=== PATIENT | male | born 1945 | race African-American/Black ===

== ENCOUNTER 2016-12-19 08:09 | Emergency (ER) | payer OTHER ==
--- NOTE | 2016-12-19 08:21 | ERNOTE ---
Medical Problem HPI - General Time Seen by Provider: 12/19/16 08:19 Source: patient Exam Limitations: clinical condition - Immun/Allergies/Home Medications Allergies/Adverse Reactions: Allergies STAN Inhibitors Allergy (Verified 12/19/16 08:21) Tricyclic Compounds Allergy (Verified 12/19/16 08:21) Home Medications: HOME MEDICATIONS Aspirin 325 mg PO DAILY 12/19/16 [Last Taken Unknown] Calcium Carbonate/Vitamin D3 [Calcium 500 + Vit D 200 Tablet] 1 each PO DAILY [Last Taken Unknown] DULoxetine HCL [Cymbalta] 30 mg PO DAILY 12/19/16 [Last Taken Unknown] Docusate Sodium 100 mg PO BID 12/19/16 [Last Taken Unknown] Doxercalciferol [Hectorol] 2.5 mcg PO DAILY 12/19/16 [Last Taken Unknown] Furosemide [Lasix] 80 mg PO DAILY 12/19/16 [Last Taken Unknown] Gabapentin [Neurontin] 1,200 mg PO TID 12/19/16 [Last Taken Unknown] Insulin Detemir [Levemir] 10 units SC QAM 12/19/16 [Last Taken Unknown] Insulin Detemir [Levemir] 50 units SC HS 12/19/16 [Last Taken Unknown] Losartan Potassium [Cozaar] 100 mg PO DAILY 12/19/16 [Last Taken Unknown] Morphine Sulfate [Morphine Sulfate ER] 15 mg PO Q6H PRN 12/19/16 [Last Taken Unknown] Morphine Sulfate [Morphine Sulfate ER] 30 mg PO BID 12/19/16 [Last Taken Unknown ] Naproxen [Naprosyn] 500 mg PO BID 12/19/16 [Last Taken Unknown] Ondansetron HCl [Zofran] 8 mg PO Q8H 12/19/16 [Last Taken Unknown] Sennosides [Senna Lax] 8.6 mg PO BID 12/19/16 [Last Taken Unknown] Simvastatin [Zocor] 20 mg PO HS 12/19/16 [Last Taken Unknown] - History of Present History Narrative: Patient is brought in by half-way staff for being less responsive today. 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 There is no other history available to this examiner. Review of Systems - Narrative Narrative: Review of systems in this patient is impossible because the patient is sleeping he is unarousable he has a good airway but he is not communicating at this time. Physical Exam - Physical Exam General Appearance: Present: other - patient is obese and he is sleeping but he is arousable ED Progress - Results and Orders Patient's Lab Results:: I have reviewed the patient's lab results. - Vital Signs Patient's Vital Signs:: I have reviewed the patient's vital signs. - X-Ray X-Ray #1 X-Ray: chest - CT/Ultrasound CT/Ultrasound Narrative: Ct of head was ordered and read by the radiologist as no intracranial bleeding Plan - Plan Plan: Initially the patient's blood glucose in the ambulance was 49 after an amp of D50 blood glucose increased to 114. In our emergency room first Blood pressure was 125/109 in our emergency room shortly thereafter after the patient came back from CT scanner the recent blood pressure dropped to 85/33 at this time the decision was made to add a second line and bolused the patient with another liter of fluids. Levophed at 0.5 mics per kilogram was initiated as a pressor drip. I am being told at this facility that half-way inmate's are not admitted to this facility and transferred to [facility] at this time the [facility] was consulted in regards to accepting this patient. This patient's hemoglobin was 7.6 with a hematocrit of 23.6. After contacting the [facility] I discussed this case with Dr. Bello who accepted the patient to the emergency room. Dr. Bello requested that we place a central line however in this facility since the central line is to be done by our surgeon and that would significantly delay the transfer and definitive care of this patient at the [facility] a central line will not be placed. Patient is ready and stabilized to be transferred out via air transport to [facility] at this time. Additionally a call from [facility] called to inform us that this patient is NOT on hospice and is a full code. This is contrary to the report I received from Dominga, the patient's nurse in the half-way, with whom I spoke earlier about this patient. Departure Clinical Impression: Altered mental status, unspecified Qualifiers: Altered mental status type: unspecified Qualified Code(s): R41.82 - Altered mental status, unspecified Anemia Qualifiers: Anemia type: iron deficiency Iron deficiency anemia type: unspecified iron deficiency Qualified Code(s): D50.9 - Iron deficiency anemia, unspecified - Departure Disposition: [facility] Condition: Serious
[2016-12-19 09:03] LABS: Mean Cell Volume 86.8 fl (78-100); Mean Corpuscular Hemoglobin 27.9 pg (27-31); Mean Corpuscular Hgb Conc 32.2 g/dl (32-36); Mean Platelet Volume 9.6 fl (6.0-9.5); Neutrophil # 1.3 K/mm3 (1.3-6.0); Neutrophil % 54.7 % (42-75.0); Platelet Count 118 K/mm3 (150-450); Red Blood Count 2.72 M/mm3 (4.7-6.0); Red Cell Distribution Width 20.9 % (11.5-14.0); White Blood Count 2.4 K/mm3 (4.0-10.5)
[2016-12-19 09:06] LABS: Hematocrit 23.6 % (42.0-52.0); Hemoglobin 7.6 gm/dL (13.5-18.0)
[2016-12-19 09:19] LABS: Hemoglobin A1C 7.4 % (4.00-6.0)
[2016-12-19] MEDS ORDERED: NORMAL SALINE 1,000 ML IV ONE ×2 (09:23→09:32)
[2016-12-19 09:26] LABS: Albumin * 2.6 gm/dl (3.4-5.0); Anion Gap 14.3 mmol/L (6.8-13.8); BUN/Creatinine Ratio 14.1 (9.0-21.6); Bilirubin, Total 0.6 mg/dL (0.0-1.1); Calcium * 7.2 mg/dL (7.9-10.9); Carbon Dioxide 24.8 mmol/L (24-32.6); Potassium 4.1 mmol/L (3.4-4.6); Total Protein 6.4 gm/dL (6.2-8.2)
[2016-12-19] MEDS ORDERED: NOREPINEPHRINE BITARTRATE 4 MG in DEXTROSE 5 % IN WATER 496 ML IV PRN ×2 (09:31)
[2016-12-19 09:58] LABS: Urine Bilirubin Negative (NEGATIVE); Urine Blood Negative /ul (NEGATIVE); Urine Ketone 5 mg/dL (NEGATIVE); Urine Nitrite Negative (NEGATIVE); Urine Protein 15 mg/dL (NEGATIVE); Urine Urobilinogen Normal (NORMAL); Urine pH 5.5 pH (5.0-7.0)
[2016-12-19 10:14] VITALS: BP 89/56
[2016-12-19 10:17] LABS: Urine Appearance Clear; Urine Bacteria 1+; Urine Color Dark Yellow; Urine RBC None Seen /hpf (0-5); Urine WBC 0-5 /hpf (0-5)
== END 2016-12-19 10:43 | disposition short-term general hospital (02) ==
LOC: ER 08:09
DX: R41.82 Altered mental status, unspecified (principal); D50.9 Iron deficiency anemia, unspecified

== ENCOUNTER 2016-12-30 10:06 | Emergency (ER) | payer OTHER ==
[2016-12-30] MEDS ORDERED: DEXTROSE 50%-WATER 50 ML SYRG ONE (10:13)
[2016-12-30] MEDS ORDERED: DEXTROSE 50%-WATER 50 ML SYRG IV ONE (10:17)
--- NOTE | 2016-12-30 10:38 | ERNOTE ---
Medical Problem HPI - Narrative Date of Service: 12/30/16 - General Chief Complaint: General Assessment Time Seen by Provider: 12/30/16 10:17 Source: RN/MD, EMS, RN notes reviewed, old records, other - Residential guards Exam Limitations: clinical condition - Immun/Allergies/Home Medications Immunizations: IMMUNIZATION HX Immunizations Up to Date unknown History of Influenza Vaccine More Information Required Hx Pneumococcal Vaccination More Information Required Allergies/Adverse Reactions: Allergies STAN Inhibitors Allergy (Verified 12/30/16 10:20) Tricyclic Compounds Allergy (Verified 12/30/16 10:20) Home Medications: HOME MEDICATIONS Aspirin 325 mg PO DAILY 12/19/16 [Last Taken Unknown] Calcium Carbonate/Vitamin D3 [Calcium 500 + Vit D 200 Tablet] 1 each PO DAILY [Last Taken Unknown] DULoxetine HCL [Cymbalta] 30 mg PO DAILY 12/19/16 [Last Taken Unknown] Docusate Sodium 100 mg PO BID 12/19/16 [Last Taken Unknown] Doxercalciferol [Hectorol] 2.5 mcg PO DAILY 12/19/16 [Last Taken Unknown] Furosemide [Lasix] 80 mg PO DAILY 12/19/16 [Last Taken Unknown] Gabapentin [Neurontin] 1,200 mg PO TID 12/19/16 [Last Taken Unknown] Insulin Detemir [Levemir] 10 units SC QAM 12/19/16 [Last Taken Unknown] Insulin Detemir [Levemir] 50 units SC HS 12/19/16 [Last Taken Unknown] Losartan Potassium [Cozaar] 100 mg PO DAILY 12/19/16 [Last Taken Unknown] Morphine Sulfate [Morphine Sulfate ER] 15 mg PO Q6H PRN 12/19/16 [Last Taken Unknown] Morphine Sulfate [Morphine Sulfate ER] 30 mg PO BID 12/19/16 [Last Taken Unknown ] Naproxen [Naprosyn] 500 mg PO BID 12/19/16 [Last Taken Unknown] Ondansetron HCl [Zofran] 8 mg PO Q8H 12/19/16 [Last Taken Unknown] Sennosides [Senna Lax] 8.6 mg PO BID 12/19/16 [Last Taken Unknown] Simvastatin [Zocor] 20 mg PO HS 12/19/16 [Last Taken Unknown] - History of Present History Narrative: Mr. Tiwari is a 71-year-old male brought to the emergency department by ambulance from the [facility] for altered mental status and low blood pressure. She was recently brought here in essentially the same condition and was transferred by air to the [facility] on a Levophed drip at that time. He has prostate cancer with bone metastasis. He was anemic at that time with a hemoglobin of 7.6. He was recently returned to the [facility] from the [facility] on Augmentin for a urinary tract infection. According to the nurse on duty in his unit, he had been doing well and had returned to his baseline state until last evening when he began vomiting. This morning, he had ended up on the floor twice and reported that his legs were giving out. His mentation continued to decline and she has been in and out of consciousness. He is diabetic and his blood sugar was checked. A reading of 66 was obtained. His blood pressure was unable to be determined. On arrival his blood pressure is 78 over palp and his blood glucose is 28. An amp of D50 has been given. The patient is responsive to voice briefly, but only mumbles responses. He is a full code. [facility] reports that this has been discussed with him recently after his return from the [facility] and he stated that he continued to wish to be resuscitated. This morning however, he did assert that he wanted to be a DNR, but the nursing staff did not feel that this was an appropriate time to change his CODE STATUS as he had been confused and in and out of consciousness. Date (Duration): 12/30/16 Timing: getting worse Review of Systems - Narrative Narrative: Review of systems is unable to be obtained at this time due to the patient's altered level of consciousness - Patient's Past Medical History Patient History - Medical: Cataracts, Diabetes Type 2, Obesity Patient History - Cardiac/Respiratory: Hyperlipidemia Patient History - Cancer: Prostate Patient History - Other: None - Social History Living Situations: home Abuse History: No History of abuse Psych History: Hx of Depression Alcohol Use: none Drug Use: none - Immunizations Immunizations Up to Date: - unknown Hx Pneumococcal Vaccination: More Information Required to Determine History of Influenza Vaccine: More Information Required to Determine Physical Exam - Physical Exam General Appearance: Present: lethargic, obese Head Exam: Present: normal inspection, no evidence of injury Eye Exam: Normal inspection: bilateral, PERRL: bilateral Neck: Present: normal inspection, supple Respiratory: Present: no respiratory distress, no accessory muscle use, lungs clear, decreased breath sounds - due to large body habitus Cardiovascular/Chest: Present: regular rate, rhythm, no murmur. Absent: normal peripheral pulses Peripheral Pulses: N=norm/S=strong/W=weak/B=bound/A=absent: Dorsalis-pedis (R): Weak, Dorsalis-pedis (L): Weak Gastrointestinal/Abdominal: Present: nondistended, soft. Absent: guarding, mass Extremity Exam: Present: normal except -, pedal edema - 3+ bilaterally Neurological Exam: Present: other - Lethargic, responsive to noxious stimuli, frequent jerking/shaking movements, occasional mumbling. Absent: alert, oriented, normal mood/affect, no motor/sensory deficits Skin Exam: Present: normal color, warm/dry ED Progress - Results and Orders Patient's Lab Results:: I have reviewed the patient's lab results. - Vital Signs Patient's Vital Signs:: I have reviewed the patient's vital signs. Vital Signs: Vital Signs 12/30/16 10:09 Temperature 35.6 C L Pulse Rate 84 Respiratory 13 Rate Blood Pressure 133/106 - Progress/Reassessment Chief Complaint: General Assessment Progress:: Unchanged Progress Note-Subjective: 12/30/16 12:05 Blood pressure remains low after first liter of NS at 80/40. Levophed drip ordered. HR in 90's with SpO2 of 96 to 100% on room air. Remains somnolent with occasional mumbling. 12/30/16 13:29 Etiology of altered mental status and hypotension remains unclear at this point. [facility] contacted for transfer d/t the contractual arrangement for inmates to receive their care there. Transfer accepted by Dr. Aden, ER triage. Narcan 0.1mg given IVP per his recommendation without any change in condition. Dante Law WET WASH ASSEMBLER was here to obtain additional IV access, as the patient only has 1 peripheral line and numerous attempts for additional sites have been unsuccessful. He was also unable to obtain access. Discussed a central line, this would have to be done in the OR. Delaying transport in order to do this does not seem beneficial. The patient remains on a Levophed drip and continues to receive his NS bolus. Rocephin 2 Gm IVPB will also be given. Blood pressure continues to be in the 70's and 80's over palp. Patient remains lethargic but responsive to noxious stimuli. Departure Clinical Impression: Prostate cancer metastatic to bone Altered mental status, unspecified Qualifiers: Altered mental status type: unspecified Qualified Code(s): R41.82 - Altered mental status, unspecified Hypotension Qualifiers: Hypotension type: unspecified hypotension type Qualified Code(s): I95.9 - Hypotension, unspecified - Departure Disposition: [facility] Condition: Poor
[2016-12-30] MEDS: NORMAL SALINE 1,000 ML IV SCH ×4 (10:41→13:16)
[2016-12-30 10:50] LABS: Hematocrit 25.9 % (42.0-52.0); Hemoglobin 8.2 gm/dL (13.5-18.0); Mean Cell Volume 87.2 fl (78-100); Mean Corpuscular Hemoglobin 27.6 pg (27-31); Mean Corpuscular Hgb Conc 31.7 g/dl (32-36); NRBC# 0.1 k/mm3 (0-1); Neutrophil # 5.3 K/mm3 (1.3-6.0); Neutrophil % 73.5 % (42-75.0); Platelet Count 132 K/mm3 (150-450); Red Blood Count 2.97 M/mm3 (4.7-6.0); Red Cell Distribution Width 21.7 % (11.5-14.0); White Blood Count 7.2 K/mm3 (4.0-10.5)
[2016-12-30 10:52] LABS: Urine Bilirubin 1 mg/dl (NEGATIVE); Urine Blood Negative /ul (NEGATIVE); Urine Ketone 5 mg/dL (NEGATIVE); Urine Nitrite Negative (NEGATIVE); Urine Protein 15 mg/dL (NEGATIVE); Urine Specific Gravity >=1.030 SP.GR. (1.005-1.030); Urine Urobilinogen Normal (NORMAL); Urine pH 5.5 pH (5.0-7.0)
[2016-12-30 11:04] LABS: Albumin * 2.6 gm/dl (3.4-5.0); Anion Gap 15.8 mmol/L (6.8-13.8); BUN/Creatinine Ratio 12.3 (9.0-21.6); Bilirubin, Total 0.6 mg/dL (0.0-1.1); Ca. Corrected For Albumin 8.3 mg/dL (8.4-10.2); Calcium * 7.5 mg/dL (7.9-10.9); Carbon Dioxide 25.2 mmol/L (24-32.6); Total Protein 6.7 gm/dL (6.2-8.2)
[2016-12-30 11:05] LABS: Urine Amorphous Sediment Moderate - 2+ (NONE-FEW); Urine Appearance Cloudy; Urine Bacteria None Seen; Urine Color Yellow; Urine RBC 0-5 /hpf (0-5); Urine WBC None Seen /hpf (0-5)
[2016-12-30] MEDS ORDERED: NOREPINEPHRINE BITARTRATE 4 MG in DEXTROSE 5 % IN WATER 496 ML IV PRN ×2 (12:04)
[2016-12-30] MEDS ORDERED: NALOXONE HCL 1 MG/1 ML SYRG IV ONE (12:53)
[2016-12-30] MEDS ORDERED: NALOXONE HCL 1 MG/1 ML SYRG ONE (13:06)
--- NOTE | 2016-12-30 13:37 | OR ---
Anesthesia Procedure Note - Anesthesia Procedure Note Date of Service: 12/30/16 Narrative: Vital Signs - Last Taken Temp 35.9 C L 12/30/16 12:25 Pulse 89 12/30/16 12:25 Resp 15 12/30/16 12:25 BP 66/38 12/30/16 12:25 Pulse Ox 90 12/30/16 12:25 O2 Oxygen Delivery Method Nasal Cannula ANESTHESIA PROCEDURE NOTE Date of Procedure: 12/30/2016 Time of procedure: 12:30. Performed by: Dante Law CRNA, RUTH, MSN Preprocedure diagnosis: Decreased level of consciousness, lack of IV access. Post procedure diagnosis: Same. Procedure: Venipuncture for IV access. Indications: Decreased level of consciousness, lack of IV access. Findings: Mr. Alston has was seen in and was not responding to verbal and very little tactile stimuli. He was making occasional sounds but no verbalization, is upper extremities were in a constant motion as if shaking, perhaps semi- purposefully. He had a 20-gauge IV running in the right antecubital area with normal saline and Levophed. Procedure details: Peripheral veins adequate for any type of IV access was not apparent. I first scanned his left lower and upper arm without identifying any reasonable access for intravenous insertion. I then scanned his right upper and lower arm and did find a potential venous access medial to where the current IV is positioned. A small vein did sit next to an artery which appeared to have the capacity of harboring an IV catheter. After marking and prepping the site a 20-gauge IV was inserted at a rather steep angle until blood returned. There was very little room to thread the catheter however it aspirated easily and flushed easily. I was requested to draw blood from the existing site and after a few milliliters of waist blood was drawn, a new syringe was attached and at this point was unable to draw any further blood. Repositioning of the catheter was to no avail. I attempted to reassess the area via ultrasound and at this time could no longer visualize the same access that I had previously experienced. Being unable to identify any reasonable vessel, the attempt was aborted and reported to the emergency room practitioner shuttle preparation supervisor. EBL: Minimal. Fluids: N/A. Specimen: N/A. Post procedure condition: The patient tolerated the procedure well. No complications were noted. Thank you for this consultation. Dante Law CRNA, PRODUCT DISTRIBUTION SPECIALIST, MSN 12/30/16 13:23
[2016-12-30 13:52] VITALS: BP 80/35
== END 2016-12-30 14:01 | disposition short-term general hospital (02) ==
LOC: ER 10:06
PROC: 0T9B70Z Drainage of Bladder with Drainage Device, Via Natural or Artificial Opening (ICD-10-PCS; principal; 2016-12-30)
PROC: 06HY33Z Insertion of Infusion Device into Lower Vein, Percutaneous Approach (ICD-10-PCS; 2016-12-30)
DX: C61 Malignant neoplasm of prostate (principal); C79.51 Secondary malignant neoplasm of bone; R41.82 Altered mental status, unspecified; I95.9 Hypotension, unspecified; E11.9 Type 2 diabetes mellitus without complications; E78.5 Hyperlipidemia, unspecified